=== PATIENT | male | born 1995 | race Caucasian/White ===

== ENCOUNTER 2016-10-17 12:20 | Inpatient (IN) | payer OTHER ==
[~2016-10-17] VITALS: Ht 162.6 cm; Wt 79.4 kg
--- NOTE | 2016-10-17 12:26 | NUR ---
PT TO ED C/O "I'VE BEEN HAVING REALLY BAD ANXIETY LATELY". PT HAS BEEN ZOLOFT SINCE THE SUMMER, HAS NOT BEEN TAKING PRESCRIBED. PT HAS BEEN HAVING ON AND OFF THOUGHTS OF SUICIDE, NO PLAN. DENIES HI. DENIES SI AT THIS TIME. ADMITS TO MARIJUANA USE. PT STATES HE WOULD LIKE TO SPEAK TO SOMEONE AND HAVE HIS MEDS REGULATED AGAIN.
--- NOTE | 2016-10-17 13:06 | ED PSYCHIATRIC COMPLAINT ---
See Addendum History of Present Illness General Chief Complaint: Psychiatric Related Complaint Stated Complaint: "HAVING ALOT OF ANXIETY" Source: patient Exam Limitations: no limitations Vital Signs & Intake/Output Vital Signs & Intake/Output Vital Signs Date Time Temp Pulse Resp B/P Pulse O2 O2 Flow FiO2 Ox Delivery Rate 10/17 1639 97.1 76 18 167/76 97 Room Air 10/17 1225 98.1 75 20 131/92 98 Room Air Allergies Coded Allergies: No Known Allergies (10/17/16) Reconcile Medications Sertraline HCl (Zoloft) 50 MG TABLET 1 TAB PO DAILY MENTAL HEALTH (Reported) Testosterone Cypionate (Depo-Testosterone) 100 MG/ML VIAL 1 INJ SC QTUES UNKNOWN (Reported) Triage Note: PT TO ED C/O "I'VE BEEN HAVING REALLY BAD ANXIETY LATELY". PT HAS BEEN ZOLOFT SINCE THE SUMMER, HAS NOT BEEN TAKING PRESCRIBED. PT HAS BEEN HAVING ON AND OFF THOUGHTS OF SUICIDE, NO PLAN. DENIES HI. DENIES SI AT THIS TIME. ADMITS TO MARIJUANA USE. PT STATES HE WOULD LIKE TO SPEAK TO SOMEONE AND HAVE HIS MEDS REGULATED AGAIN. Triage Nurses Notes Reviewed? yes Onset: Abrupt Duration: day(s): HPI: 21-year-old male comes into the emergency room for further evaluation of anxiety. Patient has been reporting a lot of stress in his personal life, work life, and family dynamics. Patient has been having some passive suicidal thoughts. He is a transgender. He is on Zoloft for depression but has not been taking it on a regular basis recently. His sister is getting and he does not get along with his dad in that side of the family. He has been having difficulty coping with this stress. Denies any alcohol use. Admits to marijuana but denies any other illicit drug use. Denies any other associated symptoms. (NBA MCCLOUD) Past History Travel History Traveled to [place] past 21 day No Medical History Any Pertinent Medical History? see below for history Psychiatric: anxiety, depression Surgical History Surgical History: non-contributory Psychosocial History What is your primary language Telugu Tobacco Use: Never used ETOH Use: denies use Illicit Drug Use: marijuana Family History Hx Contributory? No (NBA MCCLOUD) Review of Systems Review of Systems Constitutional: Reports: no symptoms. EENTM: Reports: no symptoms. Respiratory: Reports: no symptoms. Cardiovascular: Reports: no symptoms. GI: Reports: no symptoms. Genitourinary: Reports: no symptoms. Musculoskeletal: Reports: no symptoms. Skin: Reports: no symptoms. Neurological/Psychological: Reports: see HPI. Hematologic/Endocrine: Reports: no symptoms. Immunologic/Allergic: Reports: no symptoms. All Other Systems: Reviewed and Negative (NBA MCCLOUD) Physical Exam Physical Exam General Appearance: well developed/nourished, mild distress Head: atraumatic Eyes: Bilateral: normal appearance, EOMI. Ears, Nose, Throat: normal ENT inspection, hearing grossly normal Neck: normal inspection Respiratory: normal breath sounds, no respiratory distress Cardiovascular: regular rate/rhythm Extremities: normal range of motion Neurological/Psychiatric: awake, alert, normal mood/affect Appearance/Memory/Insight: appropriate appearance Behavoir/Eye Contact/Speech: cooperative Skin: intact, normal color, warm/dry SAD PERSONS Done? patient not suicidal (no current thoughts) (NBA MCCLOUD) Progress Differential Diagnosis: dementia, drug intoxication, drug overdose, drug withdrawal, electrolyte abnormality, encephalitis, hypoglycemia, hypothyroidism, IC hem/mass/tumor, meningitis, depression, anxiety, bipolar, Plan of Care: Orders Procedure Date/time Status Continuous Observation Monitor 10/17 1309 Active ETHANOL 10/17 1306 Complete COMPREHENSIVE METABOLIC PANEL 10/17 1306 Complete CBC WITHOUT DIFFERENTIAL 10/17 1306 Complete ED CRISIS PSYCH CONSULT 10/17 1306 Active URINE DRUGS OF ABUSE 10/17 1304 Complete Laboratory Tests 10/17/16 1325: Anion Gap 12, Estimated GFR > 60, BUN/Creatinine Ratio 13.3, Glucose 77, Calcium 9.9, Total Bilirubin 1.8 H, AST 29, ALT 39, Alkaline Phosphatase 84, Total Protein 8.2, Albumin 4.6, Globulin 3.6, Albumin/Globulin Ratio 1.3, CBC w Diff NO MAN DIFF REQ, RBC 5.25, MCV 93.3, MCH 32.2 H, RDW 12.8, MPV 10.4, Gran % 71.1, Lymphocytes % 23.7, Monocytes % 4.3, Eosinophils % 0.4, Basophils % 0.5, Absolute Granulocytes 6.0, Absolute Lymphocytes 2.0, Absolute Monocytes 0.4, Absolute Eosinophils 0, Absolute Basophils 0, PUBS MCHC 34.5, Serum Alcohol < 10.0 10/17/16 1315: Urine Opiates Screen < 100.00, Methadone Screen < 40, Barbiturate Screen < 60, Ur Phencyclidine Scrn < 6.00, Amphetamines Screen < 100, U Benzodiazepines Scrn < 85, Urine Cocaine Screen < 50, Urine Cannabis Screen > 80.00 H Departure Departure Disposition: STILL A PATIENT Condition: Stable Clinical Impression Primary Impression: Major depressive disorder, recurrent, unspecified Referrals: UNKNOWN (PCP/Family) Departure Forms: Customer Survey General Discharge Information Psych Admission Note Psychiatric Admission: I have seen and evaluated JIMI CAMPA. I have also reviewed all the pertinent lab results and diagnostic results. JIMI CAMPA will be admitted to our inpatient Psychiatric unit for treatment and care. (NBA MCCLOUD) PA/EYELET MAKER Co-Sign Statement Statement: ED Attending supervision documentation- [] I saw and evaluated the patient. I have also reviewed all the pertinent lab results and diagnostic results. I agree with the findings and the plan of care as documented in the PA's/EYELET MAKER's documentation. [x] I have reviewed the ED Record and agree with the PA's/EYELET MAKER's documentation. [] Additions or exceptions (if any) to the PAs/EYELET MAKER's note and plan are summarized below: [] (ELSY BANKS DO)
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
--- NOTE | 2016-10-17 13:28 | NUR ---
URINE TRIO AND BLOODWORK,SST,LAV AND BLUE TOP TUBES SENT TO LAB.
[2016-10-17 13:34] LABS: ABSOLUTE BASOPHIL COUNT 0 /CUMM (0.0-0.2); ABSOLUTE EOSINOPHIL COUNT 0 /CUMM (0.0-0.7); ABSOLUTE MONOCYTE COUNT 0.4 /CUMM (0.10-0.60); BASOPHIL % 0.5 % (0.0-2.0); EOSINOPHIL % 0.4 % (0-5); GRANULOCYTE % 71.1 % (42.2-75.2); MEAN CORPUSCULAR HGB 32.2 PG (27.0-31.0); MEAN CORPUSCULAR HGB CONC 34.5 G/DL (33.0-37.0); MEAN CORPUSCULAR VOLUME 93.3 FL (80.0-94.0); MEAN PLATELET VOLUME 10.4 FL (7.4-10.4); PLATELET COUNT 286 /CUMM (130-400); RBC DISTRIBUTION WIDTH 12.8 % (11.5-14.5); RED BLOOD CELL CT 5.25 /CUMM (4.70-6.10); WHITE BLOOD CELL COUNT 8.4 /CUMM (4.8-10.8)
--- NOTE | 2016-10-17 14:00 | ED PSY CRISIS COLLATERAL NOTE ---
Collateral Note Collateral Note Family/Inform/Slava Contacts: Spoke with Mother, she is concerned with these "spells" of anxiety, and using marajuana. He has never been suicidal, he worries about finances, and his future. Mom states he minimizes drug use, and they do not live together so she isnt too clear about exactly how he is doing. He does see 'someone", but has never been admitted to a psychiatric hospital. Please keep her updated [phone] is her cell.
[2016-10-17] MEDS ORDERED: ZOLOFT50 M1 PO (14:18)
[2016-10-17] MEDS ORDERED: DEPO-TESTO100 MG/1 M SC (14:19)
--- NOTE | 2016-10-17 14:59 | NUR ---
FOOD TRAY ORDERED.
--- NOTE | 2016-10-17 15:41 | NUR ---
PT NOTED RESTING ON BED AND OFFERS NO COMPLAINTS AT PRESENT
--- NOTE | 2016-10-17 16:54 | NUR ---
PT NOTED WATCHING TV AND SITTER AT DOOR AND NO COMPLAINT AT PRESENT
--- NOTE | 2016-10-17 17:37 | NUR ---
PT CALM AND COOEPRATIVE, BUT STATES HE FEELS ANXIOUS. PT MEDCIATED WITH XANAX NOW
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
--- NOTE | 2016-10-17 19:13 | NUR ---
PT FAST ASLEEP BUT AROUSE FOR VITALS AND DENIES ANY COMPLAINTS. PT NOTED TO HAVE A SLIGHTLY HIGH PRESSURE AND PROVIDER WILL BE UPDATED
--- NOTE | 2016-10-17 20:10 | NUR ---
Pt requires a bed search for inpatient psychiatric admission. Pt referral faxed to [facility] and [facility] for review.
--- NOTE | 2016-10-17 21:42 | NUR ---
PER [facility], THEY ARE STILL BED SEARCHING AND PT AWARE
--- NOTE | 2016-10-17 22:06 | NUR ---
SPOKE WITH CRISIS REP SYDNEE AND HE STS PT IS A BEDSEARCH UNTIL TOMORROW
--- NOTE | 2016-10-17 23:39 | NUR ---
PT SLEEPING. EASILY AROUSED TO VERBAL STIMULATION. RESP UNLABORED. NO APPARENT DISTRESS. SITTER PRESENT
--- NOTE | 2016-10-18 01:30 | NUR ---
PT SLEEPING. RESP UNLABORED. NO APPARENT DISTRESS.
--- NOTE | 2016-10-18 03:32 | NUR ---
PT CONTINUES SLEEPING. RESP UNLBAORED. SKIN WARM AND DRY. NO APPARENT DISTRESS
--- NOTE | 2016-10-18 04:55 | NUR ---
PT CONTINUES SLEEPING. RESP UNLABORED. NO APPRENT DISTRESS. SITTER PRESENT
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
--- NOTE | 2016-10-18 10:50 | NUR ---
DOSING SITTER IN PLACE. ALERT COOP ATE BREAKFAST WITHOUT DIFF.
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
--- NOTE | 2016-10-18 11:17 | NUR ---
ASSUMED CARE OF THIS PT FROM JIM HOLDER. PT SITTING ON BED WATCHING TV, AWAITING TRANSFER DOWN TO [facility]. PT CALM AND COOPERATIVE. SITTER AT DOOR FOR SAFETY.
--- NOTE | 2016-10-18 12:45 | NUR ---
PT SITTING ON BED CALM AND COOPERATIVE, AWAITING TRANSFER TO CPS. VSS. SITTER AT DOOR FOR SAFETY,
--- NOTE | 2016-10-18 13:51 | NUR ---
PT OBSERVED DOING PUSH UPS ON THE FLOOR IN ROOM 14. PT IS CALM AND COOPERATIVE. SITTERS PRESENT AT DOOR. THIS RN CALLED TO GIVE REPORTS TO CPS, RN THERE IS ON BREAK AND WILL CALL ER FOR REPORT WHEN HE/SHE RETURNS.
[2016-10-18 15:02] VITALS: BP 123/76
--- NOTE | 2016-10-18 16:34 | NUR ---
PT IS CALM, PLEASANT, RESPECTFUL, COOPERATIVE AND APPROPRIATE, ORIENTED TO UNIT/REG/RULES AND PRIVATE ROOM (FEMALE TO MALE TRANSGENDER). PT'S MOOD IS STABLE WITH FULL RANGE AFFECT, REPORTS INCREASE IN RECENT STRESSORS AND STOPPING MEDICATIONS AND FEELING DEPRESSED AND INTERMITTENT SI. REPORTS POOR SLEEP AND APPETITE AND WHEN ASKED DIRECTLY, PT CURRENTLY DENIES SI/HI/HALLUCINATIONS AND IS MOTIVATED FOR TREATMENT, FEELS SAFE HERE, WILL NOT HARM SELF AND WOULD LET STAFF KNOW IF ANY OF THE ABOVE CHANGED. SKIN THAT IS VISIBLE IS CLEAN, DRY AND INTACT AND DENIES ANY ALTERATIONS TO SKIN THAT IS NOT VISIBLE TO THIS RN, DENIES ANY MEDICAL HX (BESIDES MASTECTOMY). DR. MILNER NOTIFIED FOR H&P @ 1931, VSS.
[2016-10-18 19:39] VITALS: BP 139/89
--- NOTE | 2016-10-18 21:58 | NUR ---
PT IS VISIBLE ON UNIT, SOCIAL WITH PEERS AND STAFF. ISOLATED IN ROOM AND READ FOR PART OF EVENING BUT DID ATTEND WRAP UP MEETING. VERY PLEASANT AND COOPERATIVE. NO COMPLAINTS OR SI REPORTED. PT HAS A STABLE MOOD AND FULL RANGE AFFECT.
[2016-10-19 07:39] VITALS: BP 137/69
[2016-10-19 12:07] VITALS: BP 133/83
--- NOTE | 2016-10-19 13:14 | NUR ---
PT IS COMPLIANT AND COOPERATIVE. MOOD IS STABLE WITH A FULL RANGE OF AFFECT. PT DENIES SI AT THIS TIME, NO COMPLAINTS OFFERED. PT IS PRESENT IN THE COMMUNITY AND INTERACTING WELL WITH PEERS AND STAFF. PT IS ATTENDING GROUPS. VITALS ARE STABLE, APPETITE IS GOOD.
--- NOTE | 2016-10-19 13:26 | History & Physical ---
General Information and HPI History of Present Illness: This is a young 21-year-old patient admitted for the first time to [facility] because of increasing anxiety and depression and some suicidal thoughts. The patient reports that he has been seeing a therapist in [place] for about 4 years or so because of problems with gender identity and he identifies himself with male sex now since he has had previous surgery for bilateral mastectomy about 3 years ago in [place]. He is under treatment with an environmental services manager and taking testosterone injections every week 50 mg intramuscularly prescribed by the environmental services manager in [place] he has not had any genitals surgery and still has the uterus intact and claims that the last menstrual period was about 3 years ago although he has had some spotting from the uterus bleeding about a year ago. He denies any significant medical injuries or fractures or hospitalizations in the past and denies any prolonged illnesses. There is no other significant history in the past. Allergies/Medications Allergies: Coded Allergies: No Known Allergies (10/17/16) Home Med list Sertraline HCl (Zoloft) 50 MG TABLET 1 TAB PO DAILY MENTAL HEALTH (Reported) Testosterone Cypionate (Depo-Testosterone) 100 MG/ML VIAL 1 INJ SC QTUES UNKNOWN (Reported) Past History Travel History Traveled to [facility] past 21 day No Medical History Neurological: NONE EENT: NONE Cardiovascular: NONE Respiratory: NONE Gastrointestinal: NONE Hepatic: NONE Renal: NONE Musculoskeletal: NONE Psychiatric: anxiety, depression Endocrine: NONE Blood Disorders: NONE Cancer(s): NONE CUT OFF MAN/Reproductive: NONE History of MRSA: No History of VRE: No History of CDIFF: No Isolation History: Standard Surgical History Surgical History: non-contributory, has had bilateral mastectomy for gender identity Past Family/Social History Psychosocial History Where do you live? 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 Denies: no symptoms. EENTM: Denies: no symptoms. Cardiovascular: Denies: no symptoms. Respiratory: Denies: no symptoms. GI: Denies: no symptoms. Genitourinary: Reports: see HPI. Musculoskeletal: Denies: no symptoms. Skin: Reports: cysts (cystic acnes all over the back). Neurological/Psychological: Reports: see HPI, anxiety, depressed, emotional problems. Exam & Diagnostic Data Last 24 Hrs of Vital Signs/I&O Vital Signs Date Time Temp Pulse Resp B/P Pulse O2 O2 Flow FiO2 Ox Delivery Rate 10/19 1207 77 133/83 10/19 0739 98.1 84 137/69 10/18 1939 98.7 81 139/89 10/18 1502 98.0 80 123/76 Physical Exam General Appearance Alert, Oriented X3, Cooperative, No Acute Distress Skin No Rashes, No Breakdown, multiple cystic type acne is all over the back due to testosterone HEENT Atraumatic, PERRLA, EOMI, Mucous Membr. moist/pink Neck Supple, No JVD, No thryomegaly, +2 Carotid Pulse wo Bruit Lymphatic Cervical nl Cardiovascular Regular Rate, Normal S1, Normal S2, No Murmurs, Gallops, Rubs Lungs Clear to Auscultation, Normal Air Movement, bilateral surgical scars below the nipples due to previous bilateral mastectomy Abdomen Normal Bowel Sounds, Soft, No Tenderness, No Hepatospenomegaly, No Masses Neurological Exam Findings: Normal Gait, Normal Speech, Strength at 5/5 X4 Ext, Normal Tone, Cranial Nerves 3-12 NL, Reflexes 2+ Cranial Nerves II through XII: Nonfocal and intact bilaterally Extremities No Clubbing, No Cyanosis, No Edema, No Tenderness/Swelling Assessment/Plan Assessment: This is a young transgender male admitted for anxiety and depression with suicidal thoughts was used to be female and is on testosterone and status post bilateral mastectomies in the past. From medical standpoint he's fairly stable without any acute medical problem at this time. His blood work is essentially normal except for minimal elevation of bilirubin probably due to fasting. The urine toxicology screen is positive for marijuana but negative for all other drugs. He is on testosterone 50 mg once a week intramuscularly otherwise he does not require any other medication or treatment from medical standpoint at this time. As Ranked By This Provider Problem List: 1. Major depressive disorder, recurrent, unspecified Miscellaneous Miscellaneous Documentation Attending Case Discussed With: KAPIL WONG,RODRIGO Haas Primary Care Physician: UNKNOWN Patient sees these Specialists endocrin Level of Patient Care: ROBER Herring Attending Review Statement Attending Statement Attending MD Statement: examined this patient, reviewed EMR data (avail), discussed with nursing Attending Assessment/Plan: This 21-year-old patient is admitted for the first time for increased anxiety and depression. From medical standpoint he's fairly stable that any acute medical problems and does not need any workup or treatment. He is on testosterone injections for gender reclassification and no other medication. He does not require any specific workup or treatment from medical standpoint and will be seen only as needed.
--- NOTE | 2016-10-19 14:53 | SOCIAL WORKER TX PLAN PSYCH ---
Treatment Plan - Please Document: - Evidence that there is ongoing collaboration between - the patient and the interdisciplinary team, - including the patient's active participation and - responsibility for engaging in the treatment regimen, - and that the treatment plan is individualized and - relevant to the patient's conditions. - Treatment plan should reflect documentation indicating - that all active therapeutic efforts are included. Strengths/Capabilities: insightful; college graduate; involved in transgender advocacy Physical Limitations (Interventions): none reproted Patient Identified Trmt Goals: " I want to handle my stress better." Discharge Plan: IOP Problem/Goals #1 Problem #1: suicidal ideation Goal (Short Term): Today I will attend 2 groups Today I will identify 2 stressors Today I will identify 2 positive supports Today I will work on recognizing 3 emotions I am feeling Goal (Senior Radiation Protection Technician): Be free of suicidal thoughts/attempts Develop 3 coping skills to deal with depression Identify 3 positive support systems to call in crisis Develop a crisis plan with 3 dodge people Identify 2 positive traits per week about myself Identify 2 things I have to look forward to Identify 2 positive people in my life and 1 thing I appreciate about them Interventions: Learn ways to manage depressive symptoms accordingly and identify positive supports to manage life stressors and mood fluctuations. Modalities: Encourage groups, education on depression, provide CBT treatment, family meeting. DSM5/PS Stressors/Medical Prob Diagnosis' (DSM 5, Stressors, Medical): Unspecified depressive d/o (f32.90) ptsd unspecified (f43.10) family wedding/family hx recent changes transgender Current GAF: 25 Treatment Team - Responsibilities of members of the treatment team include: - Medication Management- MD or VAULT PERSON - Medication Administration and Monitoring- Nurse - Group Therapy- Occupational Therapist - 1:1 Therapy,Disch Planning,family involvement-Grounds Foreman
--- NOTE | 2016-10-19 14:53 | SOCIAL WORKER PROG NOTE PSYCH ---
Social Work Progress Note Progress Note SW met with patient for the first time today. Patient presents with normal mood and affect congruent to mood. He denies SI at present and reports that this is his first time inpatient for passive suicidal thoughts. Patient reports that he has been in outpatient therapy a few times a month with [facility] out of [place], [place]. Patient was seeing his PCP for medication but wishes to start seeing a psychiatrist. Patient reports that he will be in touch with his mother to set up family meeting for Saturday. Patient resides in [place], [place] and wishes to seek treatment in that area. This typewriter assembly and parts inspector will work on finding programs in that area of the [facility] for patient to follow up with.
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
[2016-10-19 16:16] VITALS: BP 140/75
[2016-10-19 19:52] VITALS: BP 134/88
--- NOTE | 2016-10-19 21:39 | NUR ---
PT IS CALM, COOPERATIVE WITH STAFF AND PEERS, AND COMPLIANT WITH UNIT RULES. PT IS SLIGHTLY ISOLATIVE AND WITHDRAWN, SPEDNING THE MAJORITY OF THE EVENING IN PT ROOM. PT WILL ENTER MILIEU AT TIMES, AND IN DOING SO WILL INTERACT WELL WITH STAFF/PEERS. MOOD IS STABLE, AFFECT IS EUTHYMIC TO FULL RANGE, COMMUNICATION IS ORGANIZED AND APPEARS NORMAL IN ALL RESPECTS, AND APPETITE IS NORMAL. PT DENIES SI AT THIS TIME.
--- NOTE | 2016-10-20 05:46 | NUR ---
PATIENT SLEPT ALL NIGHT.
[2016-10-20 07:45] VITALS: BP 148/74
--- NOTE | 2016-10-20 12:12 | CP SOUTH PROGRESS NOTE PSYCH ---
Psych (Inpt) Progress Note Progress Note Include the following elements, when applicable: Involvement in the active treatment of the patient with behavioral observations of the patient and the patient's response to the treatment. Review of the ongoing treatment process in the context of the treatment plan. Indication of how multi-disciplinary staff members are carrying out the treatment plan. Plans for future interventions and recommendations for revision of the treatment plan. Liaison with other physicians/providers. Progress Note: Notes reviewed, discussed pt w/ nursing staff. Interviewed pt this morning. Says he is "feeling much better", reports improved mood, denies SI/HI, denies med side effects. "I slept 10 hours last night". Denies any complaints. Vitals rev'd and wnl. No new labs today. MSE: Pleasant, well-groomed CM dressed appropriately. Good eye contact. Speech wnl. Mood "getting better". Affect euthymic, non-labile, congruent. TP log/jose, TC wnl. Denies SI/HI. Denies perceptual disturbances. Cognition grossly intact. I/J fair. A/P: Mood improving. Continue present mgmt as per primary team.
[2016-10-20 12:29] VITALS: BP 142/85
--- NOTE | 2016-10-20 12:52 | NUR ---
PT IS PRESENT ON THE UNIT AND SOCIAL WITH PEERS AND STAFF, PLEASANT, RESPECTFUL, COMPLIANT AND COOPERATIVE, TREATMENT COMPLIANT. PT ATTENDED GROUPS TODAY AND REPORTED + SLEEP, LOOKING FORWARD TO VISIT FROM FRIEND LATER TODAY, OPEN WITH COMMUNICATION AND STRESSOR.
[2016-10-20 20:15] VITALS: BP 141/73
--- NOTE | 2016-10-20 21:43 | NUR ---
PT IS CALM, COOPERATIVE WITH STAFF AND PEERS, AND COMPLIANT WITH UNIT RULES. PT IS IN MILIEU OFTEN, INTERACTING WELL WITH OTHERS. MOOD IS STABLE, AFFECT APPEARS EUTHYMIC TO FULL RANGE, COMMUNICATION IS ORGANIZED AND APPEARS NORMAL IN ALL RESPECTS, AND APPETITE IS NORMAL. PT DENIES SI AT THIS TIME.
--- NOTE | 2016-10-21 05:08 | NUR ---
PT APPEARED TO SLEEP THRU THE NIGHT.
[2016-10-21 07:33] VITALS: BP 134/94
--- NOTE | 2016-10-21 10:31 | CP SOUTH PROGRESS NOTE PSYCH ---
Psych (Inpt) Progress Note Progress Note Include the following elements, when applicable: Involvement in the active treatment of the patient with behavioral observations of the patient and the patient's response to the treatment. Review of the ongoing treatment process in the context of the treatment plan. Indication of how multi-disciplinary staff members are carrying out the treatment plan. Plans for future interventions and recommendations for revision of the treatment plan. Liaison with other physicians/providers. Progress Note: Notes reviewed, discussed pt w/ nursing staff. Interviewed pt this morning. Says he is "feeling well", reports sustained improvement in mood, denies SI/HI, denies med side effects. Denies any complaints. Vitals rev'd and wnl. No new labs today. MSE: Pleasant, well-groomed CM dressed appropriately. Good eye contact. Speech wnl. Mood "feeling well". Affect euthymic, non-labile, congruent. TP log/jose, TC wnl. Denies SI/HI. Denies perceptual disturbances. Cognition grossly intact. I/J fair. A/P: Mood continues to improve. Continue present mgmt as per primary team.
--- NOTE | 2016-10-21 11:28 | NUR ---
PT IS SOCIAL AND APPROPRIATE WITH PEERS AND STAFF, EASY TO ENGAGE AND OPEN TO TREATMENT, COMPLIANT AND PLEASANT OVERALL, NO ISSUES OR COMPLAINTS REPORTED OR OBSERVED, ATTENDING GROUPS, + APPETITE AND SLEEP, MOOD STABLE WITH FULL RANGE AFFECT.
[2016-10-21 12:01] VITALS: BP 141/71
[2016-10-21 15:52] VITALS: BP 151/89
[2016-10-21 20:04] VITALS: BP 141/78
--- NOTE | 2016-10-21 21:53 | NUR ---
PT IS CALM, COOPERATIVE WITH STAFF AND PEERS, AND COMPLIANT WITH UNIT RULES. PT IS OFTEN IN MILEU AND IS INTERACTING WELL WITH OTHERS. MOOD IS STABLE, AFFECT APPEARS FULL RNAGE, COMMUNICATION IS ORGANIZED AND APPEARS NORMAL IN ALL RESPECTS, AND APPETITE IS NORMAL. PT DENIES SI AT THIS TIME.
--- NOTE | 2016-10-22 06:03 | NUR ---
PT APPEARED TO SLEEP WELL.
[2016-10-22 07:58] VITALS: BP 132/89
--- NOTE | 2016-10-22 11:05 | CP SOUTH PROGRESS NOTE PSYCH ---
Psych (Inpt) Progress Note Progress Note Include the following elements, when applicable: Involvement in the active treatment of the patient with behavioral observations of the patient and the patient's response to the treatment. Review of the ongoing treatment process in the context of the treatment plan. Indication of how multi-disciplinary staff members are carrying out the treatment plan. Plans for future interventions and recommendations for revision of the treatment plan. Liaison with other physicians/providers. Progress Note: [I discussed this patient's progress to date, current mental status, treatment process in the context of the treatment plan, and discharge planning with staff/ team in the daily morning inpatient team meeting. I also met with the patient myself in individual session.] S: "I feel good!" O: Current Medications Sig/Refugio Start time Last Medication Dose Route Stop Time Status Admin Acetaminophen 650 MG Q4P PRN 10/18 1545 AC PO Hydroxyzine HCl 25 MG Q4H PRN 10/18 1545 AC 10/19 PO 0935 Sertraline HCl 50 MG 0800 10/19 1600 AC 10/22 PO 0828 Trazodone HCl 50 MG AT BEDTIME NEED.. 10/18 2200 AC 10/18 PO 2204 Vital Signs Date Time Temp Pulse Resp B/P Pulse O2 O2 Flow FiO2 Ox Delivery Rate 10/22 0758 97.9 98 132/89 10/21 2004 98.5 89 141/78 10/21 1552 83 151/89 10/21 1201 97 141/71 A: Chart, progress notes, VS, labs and medication list were reviewed. Vital signs were wnl. There were no new labs today. Today, I met with the patient for the first time on [facility] (covering for Jermaine Quintanilla APRN). Patient is a 21-year old female to male transgender individual who presented to ED on 10/17/16 due to increased anxiety and suicidal ideation in the context of multiple psychosocial stressors. He had been nonadherent with prescribed Zoloft, which was restarted at 50mg daily upon [facility] admission for anxiety/depression and symptoms consistent with PTSD. On encounter today, patient presented A&Ox4. Mood was calm, pleasant. Affect was euthymic and full-range. Speech was normal in rate, tone and volume. Eye contact was appropriate. He appropriately described the events leading up to [facility] admission, and demonstrated good insight and judgement into his symptoms. Thought content was appropriate. Thought process was organized and goal- directed. Cognition was grossly intact. He reported sleep and appetite were good. He denied feeling hopeless, helpless, worthless, and guilty. He reported depression of 3/10 (10 being the worst) and anxiety of 2/10 (10 being the worst) . He denied passive and active suicidal ideation, plans and intent. He denied homicidal ideation, plans and intent. He stated and also believed he will not harm himself or others. He denied racing thoughts. He was future oriented to resume work and to reside with his mother and step-father post-discharge for a couple of days before returning home to his roommates. He verbalized motivation to continue Zoloft as prescribed, in addition to continuing in treatment with his pre-existing therapist. He reported tolerating medication well and denied untoward medication effects. He reported feeling safe and ready for discharge. A family meeting was held with the patient, his mother, Laura Morales BHAVANA, and this machine sign writer. The patient's treatment progress to date, medication regimen, level of safety and discharge planning were reviewed and discussed. The patient's mother expressed no safety concerns regarding Gonzalo's discharge. The patient and his mother were in favor of discharge plan for patient to return to outpatient therapist, Chava Rosario LPC, and follow-up at [facility] for therapy and medication management. P: 1. Discharge today to patient's mother and home. 2. Discharge prescription was called into [facility] in [place] today. 3. F/u with Chava Rosario LPC tomorrow on 10/23/16 at 2PM. 4. F/u at [facility] on 10/29/16 at 9AM. 5. In the event of an emergency call 911/go to nearest emergency department. Patient verbalized understanding of instruction.
[2016-10-22 12:25] VITALS: BP 144/78
--- NOTE | 2016-10-22 13:20 | NUR ---
PT IS COMPLIANT AND COOPERATIVE WITH UNIT RULES. PT IS OUT IN COMMUNITY INTERACTING WELL WITH STAFF AND PEERS. PT IS ATTENDING ALL GROUPS. MOOD IS STABLE WITH A FULL RANGE AFFECT. PT DENIES SI THOUGHTS.
--- NOTE | 2016-10-22 14:40 | SOCIAL WORKER PROG NOTE PSYCH ---
Social Work Progress Note Progress Note Patient to discharge the hospital today. Patients mother, Radha, came in for a family meeting today. Radha offerred no concerns about patient discharging the hospital today. Patient will be staying with his mother over the next couple of days before returning to his residence. Patient has appointment with his individual therapist, Chava Rosario LPC, tomorrow at 2PM. He plans to follow up with [facility] in [place], [place] next 10/29/16 @9am for an intake. Patient will continue with ongoing individual and group therapy there along with med management. Patient denies SI/HI/AH/VH at present.
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
[2016-10-22] MEDS ORDERED: SERTRALINE HCL50 MG PO (15:18)
--- NOTE | 2016-10-22 15:21 | NUR ---
will be [place] today [place] [facility] [place] [facility] in [address], mood is stable, full range of affect. denied thoughts of self harm when asked. given education on suicide prevention, and depression
== END 2016-10-22 15:29 | DRG 882 ==
LOC: ERH 12:20 → CP SOUTH 10-18 10:43 → ERHI 10-18 10:43 → CP SOUTH 10-18 14:53
PROVIDERS: Physician Assistant Medical; ADMIT Psychiatry & Neurology Addiction Medicine
DX: F43.10 Post-traumatic stress disorder, unspecified (principal); F41.1 Generalized anxiety disorder; F64.0 Transsexualism
CPT/HCPCS: 80307; G0463; G0480